=== PATIENT | male | born 1990 | race Two or more races ===

== ENCOUNTER 2017-07-24 11:49 | Emergency (ER) | payer OTHER ==
[~2017-07-24] VITALS: Ht 182.9 cm; Wt 59.1 kg
[2017-07-24] MEDS ORDERED: OXYC-522 PO (11:53)
[2017-07-24 12:24] VITALS: BP 127/74
== END 2017-07-24 13:04 | disposition home or self-care (01) ==
LOC: EMS 11:50
DX: Z76.0 Encounter for issue of repeat prescription (principal); R03.0 Elevated blood-pressure reading, without diagnosis of hypertension; F17.210 Nicotine dependence, cigarettes, uncomplicated; G89.29 Other chronic pain
CPT/HCPCS: 99283

== ENCOUNTER 2019-07-06 12:04 | Emergency (ER) | payer OTHER ==
[~2019-07-06] VITALS: Ht 180.3 cm; Wt 65.9 kg
[~2019-07-06 12:04] MED LIST: OXYC-522 PO
[2019-07-06 12:18] VITALS: BP 125/72
[2019-07-06] MEDS ORDERED: PERTUSS(ACELL),DIPH,TET VAC/PF 0.5 ML VIAL IM ONE (12:30)
== END 2019-07-06 12:55 | disposition home or self-care (01) ==
LOC: EMS 12:04
DX: S91.332A Puncture wound without foreign body, left foot, initial encounter (principal); F17.210 Nicotine dependence, cigarettes, uncomplicated; G89.29 Other chronic pain; W22.8XXA Striking against or struck by other objects, initial encounter; Y93.89 Activity, other specified; Y92.89 Other specified places as the place of occurrence of the external cause; Y99.8 Other external cause status
CPT/HCPCS: 90471; 90715